=== PATIENT | male | born 1970 | race Caucasian/White ===

== ENCOUNTER 2018-11-12 10:18 | Observation (INO) | payer OTHER ==
--- NOTE | 2018-11-12 10:46 | EDPHY ---
General Time Seen by Provider: 11/12/18 10:40 Narrative: CLINICAL IMPRESSION: Chest tightness, shortness of breath, abdominal pain, nausea and vomiting ASSESSMENT/PLAN: Patient is a 48-year-old male with no significant medical history presents to the emergency department complaining of 4 days of chest tightness, shortness of breath, abdominal pain, nausea and vomiting. Patient is afebrile, uncomfortable appearing however not toxic-appearing. His abdomen was soft with tenderness to palpation in the epigastrium with mild voluntary guarding. An ECG was immediately obtained and revealed no evidence of acute ischemia, troponin negative. Chest tightness has been ongoing for 4 days, I do not suspect ACS. Perc negative, do not suspect pulmonary embolism. CBC revealed mild leukocytosis, suspect reactive. His vital signs were reviewed, no findings suggestive of sepsis or serious bacterial illness. Basic metabolic panel revealed a creatinine of 3.4 and a BUN of 48 consistent with acute kidney injury and dehydration. Patient with reported normal kidney function at baseline however has had episodes of elevated creatinine secondary to severe dehydration such as today. I suspect this is prerenal. The patient was given 2 L of IV fluid, Chem 8 was repeated and creatinine was appropriately responding and decreased to 2.5. CT abdomen and pelvis revealed incidental pulmonary nodule with recommendation for outpatient follow-up, fat stranding suggestive of Crohn's diagnosis, findings suggestive of medullary sponge kidney ; no other acute intra-abdominal processes identified. The patient was given Dilaudid, Zofran, Bentyl, Reglan and Ativan with mild improvement of his symptoms. The patient will be admitted to the hospitalist service for further evaluation and management, I spoke directly with Geetha Jones NP- he will be admitted to Dr. Jj. It is unclear the exact etiology of this patient's symptoms however query gastroparesis, irritable bowel versus gastritis. On repeat exam the patient was much more comfortable appearing, his abdomen remained soft without evidence of a surgical abdomen. DIFFERENTIAL DX: Chest pain including but not limited to myocardial ischemia, pulmonary embolus, chest wall pain, pleural inflammation and pulmonary infectious causes. Shortness of breath including but not limited to pulmonary infectious process, COPD, asthma, pulmonary embolus and congestive heart failure. Abdominal pain including but not limited to appendicitis, cholecystitis, gastritis and urinary tract infection. ED COURSE: 1050: Case discussed with Dr. Abernathy 1130: Creatinine of 3.4. 1205: Calcification medullary pyramids R>L. Nonspecific finding suggestive of Crohn's however no active colitis. Pulmonary nodule which will need to be followed up with repeat CT. No other acute intra-abdominal findings. CHIEF COMPLAINT: Chest pain, shortness of breath, abdominal pain, nausea, vomiting, weight loss HPI: Patient is a 48-year-old male with no significant medical history who presents to the emergency department complaining of chest tightness, shortness of breath , abdominal pain, nausea and vomiting that has been ongoing for the last 4 days. Patient reports on Sunday he went out to eat, when he returned home he started feeling hot and cold flashes and had sudden onset of vomiting. Patient had multiple episodes of vomiting that evening. On Sunday he kept his diet to straight fluids, no further vomiting at that time. On Sunday he tried to eat solids and had repeated emesis from 3 until 9:00 p.m.. Patient reports persistently feeling poorly with constant chest tightness that has been present since Sunday with associated intermittent shortness of breath. He denies any radiation of his chest tightness, states that it is in the center of his chest. He has had no associated diaphoresis. No history of coronary artery disease or early family history of coronary artery disease. He describes his abdominal discomfort as cramping in nature that waxes and wanes. It is mostly located in his upper abdomen and epigastrium. Patient does report similar episodes in the past with extensive workup in [place] including normal upper endoscopy and colonoscopy; possible Crohn's but never confirmed. Patient with presumed irritable bowel syndrome, currently not on any medications. Patient reports it has been several years since he has had a similar episode. He denies any fevers , hematemesis or urinary symptoms to include dysuria, hematuria or frequency. Patient has not had a bowel movement since Sunday, reports a 22 lb weight loss since this time as well. PMH: Intermittent abdominal pain Family History: Noncontributory Social History: Occasional alcohol, denies smoking REVIEW OF SYSTEMS: All other systems negative Constitutional: Decreased appetite. No fever, no chills. Eyes: No discharge, vision change ENT: No sore throat, congestion, ear pain. Cardiovascular: Chest pain, no palpitations. Respiratory: Shortness of breath, no cough. Gastrointestinal: Abdominal pain, vomiting, constipation. Genitourinary: No hematuria, dysuria, flank pain, pelvic pain. Musculoskeletal: No back pain, joint swelling, joint pain, myalgias. Skin: No rashes, color change. Neurological: No headache, dizziness, weakness. PHYSICAL EXAM: General Appearance: Patient is well-developed, he is uncomfortable appearing however not toxic-appearing. HENT: Normocephalic, atraumatic. Bilateral external ears are normal. Bilateral tympanic membranes are normal with pearly hernandez reflex. Nares are clear, mucosa is pink. Oropharynx is clear, mucosa is mildly dry, uvula is midline. There is no tonsillar enlargement or exudate. The dentition is normal. Eyes: PERRLA, no acute vision change, nystagmus, swelling, discharge, pain or photosensitivity. Conjunctiva pink, no pallor or injection. Neck: Supple, nontender, no lymphadenopathy, no midline pain, FROM, no meningismus. Respiratory: There are no retractions, lungs are clear to auscultation. Cardiac: Regular rate and rhythm, no murmurs or gallops. Gastrointestinal: Patient's abdomen is soft and nondistended. He has generalized tenderness to palpation however he is most tender in the upper abdomen between the epigastrium and umbilicus with mild voluntary guarding. Negative Gan sign, negative McBurney's point tenderness and negative Rovsing's. Bowel sounds normal, no masses/hernia, no rigidity. Neurological: Alert and oriented x 3, CN 2-12 grossly intact, normal gait no ataxia, DTR's intact, normal sensation and strength. Skin: Warm, dry, no rashes, no nodules on palpation. Musculoskeletal: Extremities are symmetrical, full range of motion, no tenderness, deformity, swelling, or erythema. Psychiatric: Patient is oriented X 3, there is no agitation. PERC negative Heart score low MEDICAL DECISION MAKING: Patient was seen independently. Secondary supervising physician at time of evaluation was Dr. Abernathy, case and plan of care discussed with him. Diagnosis: Acute kidney injury, Chest tightness, shortness of breath, nausea, vomiting, abdominal pain. New, requires workup Summary: See Assessment and Plan for summary of ED visit Clinical lab tests: ordered / reviewed. Independent visualization of images, tracing, or specimens: Yes. Decision to obtain medical records or history from someone other than the patient: No Review / Summarize previous medical records: None available Discussed patient with another provider: Yes, Dr. Abernathy Patient Progress: Stable, admit. - Diagnostics Imaging Results: Imaging Impressions Abdomen/Pelvis CT 11/12/18 10:47 IMPRESSION: 1. No evidence of abdominopelvic inflammatory mass or ascites. 2. Mural fat density in the bowel wall of the ileum which can be seen with patient's reported Crohn disease. 3. Subtle renal findings suggestive of medullary sponge kidney. 4. Incomplete visualization of 1.0 cm pleural-based pulmonary nodule in the left lower lobe. This may be secondary to rounded atelectasis, however pulmonary mass cannot be excluded. Recommend outpatient diagnostic CT scan of the chest for further evaluation. Shelia Her was notified of these findings by telephone at 12:05 PM on 11/12/2018 Chest X-Ray 11/12/18 10:49 Impression: 1. Mild bronchitis/airways disease. 2. No definite focal pneumonia. - History Smoking Status: Never smoked - Objective Vital Signs: Initial Vital Signs Temperature (C) 36.6 C 11/12/18 10:26 Heart Rate 96 11/12/18 10:26 Respiratory Rate 16 11/12/18 10:26 Blood Pressure 108/93 H 11/12/18 10:26 O2 Sat (%) 97 11/12/18 10:26 O2 Delivery Mode Room Air Allergies/Adverse Reactions: No Known Allergies Allergy (Verified 11/12/18 13:11) Home Medications: Medication Instructions Recorded Calcium Carbonate [Oyster Shell 500 mg PO DAILY 11/12/18 Calcium 500 mg (*)] Herbals/Supplements -Info Only 1 ea PO DAILY 11/12/18 Laboratory Results: Laboratory Results 11/12/18 10:51 11/12/18 10:51 11/12/18 11/12/18 11/12/18 12:37 11:13 11:10 WBC RBC Hgb POC Hgb 15.3 gm/dL gm/dL 19.4 gm/dL H gm/dL (13.7-17.5) (13.7-17.5) Hct POC Hct 45 % % 57 % H % (40-51) (40-51) MCV MCH MCHC RDW Plt Count MPV Neut % (Auto) Lymph % (Auto) [place] % (Auto) Eos % (Auto) Baso % (Auto) Nucleat RBC Rel Count Absolute Neuts (auto) Absolute Lymphs (auto) Absolute Monos (auto) Absolute Eos (auto) Absolute Basos (auto) Absolute Nucleated RBC Immature Gran % Immature Gran # POC Sodium 147 mEq/L H mEq/L 144 mEq/L mEq/L (135-145) (135-145) Sodium POC Potassium 3.2 mEq/L L mEq/L 3.3 mEq/L mEq/L (3.3-5.0) (3.3-5.0) Potassium POC Chloride 109 mEq/L mEq/L 104 mEq/L mEq/L (97-110) (97-110) Chloride Carbon Dioxide Anion Gap POC BUN 41 mg/dL H mg/dL 48 mg/dL H mg/dL (7-23) (7-23) BUN Creatinine POC Creatinine 2.5 mg/dL H mg/dL 3.4 mg/dL H mg/dL (0.7-1.3) (0.7-1.3) Estimated GFR Glucose POC Glucose 105 mg/dL H mg/dL 153 mg/dL H mg/dL (70-100) (70-100) Calcium Total Bilirubin Conjugated Bilirubin Unconjugated Bilirubin AST ALT Alkaline Phosphatase POC Troponin I 0.01 ng/mL ng/mL (0.00-0.08) Total Protein Albumin Lipase 11/12/18 11/12/18 10:51 10:51 WBC 11.43 10^3/uL H 10^3/uL (3.80-9.50) RBC 6.35 10^6/uL 10^6/uL (4.40-6.38) Hgb 19.1 g/dL H g/dL (13.7-17.5) POC Hgb Hct 55.8 % H % (40.0-51.0) POC Hct MCV 87.9 fL fL (81.5-99.8) MCH 30.1 pg pg (27.9-34.1) MCHC 34.2 g/dL g/dL (32.4-36.7) RDW 12.8 % % (11.5-15.2) Plt Count 334 10^3/uL 10^3/uL (150-400) MPV 10.2 fL fL (8.7-11.7) Neut % (Auto) 75.8 % H % (39.3-74.2) Lymph % (Auto) 12.9 % L % (15.0-45.0) [place] % (Auto) 10.2 % % (4.5-13.0) Eos % (Auto) 0.1 % L % (0.6-7.6) Baso % (Auto) 0.4 % % (0.3-1.7) Nucleat RBC Rel Count 0.0 % % (0.0-0.2) Absolute Neuts (auto) 8.65 10^3/uL H 10^3/uL (1.70-6.50) Absolute Lymphs (auto) 1.48 10^3/uL 10^3/uL (1.00-3.00) Absolute Monos (auto) 1.17 10^3/uL H 10^3/uL (0.30-0.80) Absolute Eos (auto) 0.01 10^3/uL L 10^3/uL (0.03-0.40) Absolute Basos (auto) 0.05 10^3/uL 10^3/uL (0.02-0.10) Absolute Nucleated RBC 0.00 10^3/uL 10^3/uL (0-0.01) Immature Gran % 0.6 % % (0.0-1.1) Immature Gran # 0.07 10^3/uL 10^3/uL (0.00-0.10) POC Sodium Sodium 142 mEq/L mEq/L (135-145) POC Potassium Potassium 3.9 mEq/L mEq/L (3.5-5.2) POC Chloride Chloride 104 mEq/L mEq/L (97-110) Carbon Dioxide 22 mEq/l mEq/l (22-31) Anion Gap 16 mEq/L H mEq/L (6-14) POC BUN BUN 51 mg/dL H mg/dL (7-23) Creatinine 3.0 mg/dL H mg/dL (0.7-1.3) POC Creatinine Estimated GFR 23 Glucose 155 mg/dL H mg/dL (70-100) POC Glucose Calcium 10.5 mg/dL H mg/dL (8.5-10.4) Total Bilirubin 1.8 mg/dL H mg/dL (0.1-1.4) Conjugated Bilirubin 0.3 mg/dL mg/dL (0.0-0.5) Unconjugated Bilirubin 1.5 mg/dL H mg/dL (0.0-1.1) AST 33 IU/L IU/L (17-59) ALT 20 IU/L L IU/L (21-72) Alkaline Phosphatase 97 IU/L IU/L (38-126) POC Troponin I Total Protein 8.5 g/dL H g/dL (6.3-8.2) Albumin 5.1 g/dL H g/dL (3.5-5.0) Lipase 84 IU/L IU/L (23-300) Medications Given: Sodium Chloride (Ns) 1,000 mls @ 150 mls/hr IV CONT HAILE Stop: 05/11/19 13:59 Last Admin: 11/12/18 15:49 Dose: 1,000 mls Ondansetron HCl (Zofran) 4 mg IVP Q4 HAILE Stop: 05/11/19 13:59 Last Admin: 11/12/18 15:49 Dose: 4 mg Discontinued Medications Dicyclomine HCl (Bentyl) 20 mg PO EDNOW ONE Stop: 11/12/18 12:41 Last Admin: 11/12/18 12:45 Dose: 20 mg Diphenhydramine HCl (Benadryl Injection) 25 mg IVP EDNOW ONE Stop: 11/12/18 13:18 Last Admin: 11/12/18 13:21 Dose: 25 mg Hydromorphone HCl (Dilaudid) 0.5 mg IVP EDNOW ONE Stop: 11/12/18 12:04 Last Admin: 11/12/18 12:47 Dose: 0.5 mg Sodium Chloride (Ns) 1,000 mls @ 0 mls/hr IV ONCE ONE PRN Reason: Wide Open Stop: 11/12/18 10:49 Last Admin: 11/12/18 11:15 Dose: 1,000 mls Sodium Chloride (Ns) 1,000 mls @ 0 mls/hr IV ONCE ONE PRN Reason: Wide Open Stop: 11/12/18 11:52 Last Admin: 11/12/18 11:56 Dose: 1,000 mls Sodium Chloride (Ns) 1,000 mls @ 3,000 mls/hr IV ONCE ONE Stop: 11/12/18 17:15 Last Admin: 11/12/18 17:00 Dose: 1,000 mls Lorazepam (Ativan Injection) 1 mg IVP ONCE ONE Stop: 11/12/18 13:17 Last Admin: 11/12/18 13:27 Dose: 1 mg Metoclopramide HCl (Reglan Injection) 10 mg IVP EDNOW ONE Stop: 11/12/18 13:18 Last Admin: 11/12/18 13:21 Dose: 10 mg Ondansetron HCl (Zofran) 4 mg IVP Q4 PRN PRN Reason: Nausea/Vomiting, Can't Take PO Stop: 05/11/19 12:02 Last Admin: 11/12/18 12:44 Dose: 4 mg Point of Care Test Results: Chemistry 11/12/18 11/12/18 11/12/18 12:37 11:13 11:10 POC Sodium 147 mEq/L H mEq/L 144 mEq/L mEq/L (135-145) (135-145) POC Potassium 3.2 mEq/L L mEq/L 3.3 mEq/L mEq/L (3.3-5.0) (3.3-5.0) POC Chloride 109 mEq/L mEq/L 104 mEq/L mEq/L (97-110) (97-110) POC BUN 41 mg/dL H mg/dL 48 mg/dL H mg/dL (7-23) (7-23) POC Creatinine 2.5 mg/dL H mg/dL 3.4 mg/dL H mg/dL (0.7-1.3) (0.7-1.3) POC Glucose 105 mg/dL H mg/dL 153 mg/dL H mg/dL (70-100) (70-100) POC Troponin I 0.01 ng/mL ng/mL (0.00-0.08) ISTAT H&H 11/12/18 11/12/18 12:37 11:13 POC Hgb 15.3 gm/dL gm/dL 19.4 gm/dL H gm/dL (13.7-17.5) (13.7-17.5) POC Hct 45 % % 57 % H % (40-51) (40-51) Departure - Departure Disposition: [facility] Inpatient Acute Clinical Impression: RAHUL (acute kidney injury), Chest tightness or pressure Abdominal pain Qualifiers: Abdominal location: generalized Qualified Code(s): R10.84 - Generalized abdominal pain Nausea & vomiting Qualifiers: Vomiting type: unspecified Vomiting Intractability: non-intractable Qualified Code(s): R11.2 - Nausea with vomiting, unspecified
[2018-11-12] MEDS ORDERED: NS 1,000 ML IV ONE ×4 (10:48→16:57)
--- NOTE | 2018-11-12 12:00 | CPEKG ---
Test Reason : OPEN Blood Pressure : / mmHG Vent. Rate : 073 BPM Atrial Rate : 073 BPM P-R Int : 160 ms QRS Dur : 096 ms QT Int : 386 ms P-R-T Axes : 068 077 029 degrees QTc Int : 426 ms Sinus rhythm Confirmed by Daniel Abernathy ([id number]) on 11/12/2018 12:00:02 PM Referred By: Daniel Abernathy Confirmed By:Daniel Abernathy
[2018-11-12] MEDS ORDERED: ONDANSETRON 4 MG/2 ML VIAL IVP PRN ×2 (12:03→16:38)
[2018-11-12] MEDS ORDERED: HYDROmorphONE/DILAUDID 2 MG/ML INJ IVP ONE (12:03)
[2018-11-12 12:29] LABS: PLATELET COUNT 334 10^3/uL (150-400)
[2018-11-12] MEDS ORDERED: DICYCLOMINE 10 MG CAP PO ONE (12:40)
[2018-11-12] MEDS ORDERED: LORazepam 2 MG/ML INJ IVP ONE (13:16)
[2018-11-12] MEDS ORDERED: METOCLOPRAMIDE 10 MG/2 ML VIAL IVP ONE (13:17)
[2018-11-12] MEDS ORDERED: LORazepam 2 MG/ML INJ ONE (13:26)
[2018-11-12] MEDS ORDERED: ZOLPIDEM TARTRATE 5 MG TAB PO PRN (13:46)
[2018-11-12] MEDS ORDERED: ACETAMINOPHEN 325 MG TAB PO PRN (13:46)
[2018-11-12] MEDS ORDERED: NS 1,000 ML IV SCH (14:00)
--- NOTE | 2018-11-12 15:31 | PDGENHP ---
History and Physical History and Physical: CC:vomiting dehydration HISTORY: 4 days of diffuse abdominal pain and vomiting, aggravated by any food or fluid, no bleeding, no fevers (measured by ). He has this cyclic syndrome > 20 years, with prior w/u elsewhere (labs, imaging, endoscopy) unrevealing. Has been told Cyclic vomiting. He has used marijuana daily since late teens, he downplays amount, says a lot. Has zofran and phenergan at home finds them not very helpful. Does get relief from nausea with very hot shower. Numerous hospitalizations for same illness. Many episodes managed at home by self. Otherwise healthy. No prescribed meds. No alcohol, no street drugs. No family hx gi illness. 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 I have reviewed the list and ordered appropriate medicines. PHYSICAL EXAMINATION: Vital Signs:all normal with no fever Rubber Engraver: Examination: General: alert, oriented, good mentation, uncomfortable, can't sit still Skin: warm, dry, good color, no rash, poor turgor after 2 L NS in ER HEENT: normal Neck: no mass or jvd Resps: relaxed Lungs: clear breath sounds Heart: regular, no murmur Abdomen: soft, nondistended, nontender, +BS, no mass Upper Extremities: normal Lower Extremities: no edema, warm Joints all normal No Bleeding or bruising Neurologic: normal speech/language, normal technical artist, no focal weakness IV site: looks normal LABORATORY DATA: Initial anion gap 16, BUN 51, creatinine 3.0 Calcium 10.8 Hemoglobin 19 Mild white blood count elevation Multiple numbers are improving after initial hydration in the ER RADIOLOGY STUDIES: I reviewed CT scan of the abdomen images as well as radiologist's report. Nothing that explains his symptoms. This is a noncontrast CT scan. I refer reader to the radiologist report. There is a nonCa'd lung nodule as described. I do NOT feel there is any renal abnormality, and there is no sign of any active inflammatory bowel disease. 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; acute episode now, syndrome ongoing for >20 years * dehydration due to above * acute kidney injury due to above * prior hx of episodes of acute kidney injury, uncertain baseline renal fxn at present as patient has never had any follow up renal fxn checks between episodes * Hyperglycemia, uncertain if this is due to stress response from his acute illness as above her if he might have some endocrine issue * 1 cm lung nodule on CT, this should have further assessment refer him to primary care for continued evaluation upon discharge * Question of subtle findings in kidneys on CT scan as discussed above and in radiologist report. Given what I think is the very low likelihood that he actually has medullary sponge kidney, with the fact that he has had now a few episodes of acute renal failure of significance, giving him a contrasted CT seems unhelpful and possibly harmful. I reviewed this issue with Dr Mclaughlin who agrees * Question of mural wall fat which might be consistent with Crohn's in the distal ileum. He has had previous colonoscopy and assessment for Crohn's that did not disclose Crohn's and I do not think his current episode is suggestive of Crohn's. Would not pursue this any further unless he develops a clinical syndrome consistent with Crohn's PLANS: * IV hydration with more boluses and infusion * scheduled antiemetics * His symptoms generally take several days to improve significantly, will need > 48 hrs IV hydration/meds, inpatient status * follow renal fxn closely * I had a very long discussion with the patient and re strong recommendation to stop using marijuana products altogether indefinitely; gave them reading material on Cannabinod Hyperemesis Syndrome * Recommend his creatinine be followed as outpt to determine true baseline creat and may be good idea to see software integration developer over time. * check Hg A1c * Outpt follow up of lung nodule * No further evaluation for subtle kidney findings or mural fat in ileum on CT I have reviewed the patient's case in detail with Dr. Aditya Mclaughlin
[2018-11-12] MEDS: ONDANSETRON 4 MG/2 ML VIAL IVP SCH ×3 (15:49→21:30)
[2018-11-12] MEDS ORDERED: PROMETHAZINE HCL 25 MG/ML INJ IVP PRN (16:57)
[2018-11-12] MEDS ORDERED: MELATONIN 3 MG TAB PO SCH (21:00)
[2018-11-12] MEDS ORDERED: SIMETHICONE 80 MG TAB CHEW PO ONE (21:30)
[2018-11-13] MEDS ORDERED: CALCIUM CARBONATE 500 MG CHEWABLE TAB PO PRN (00:46)
[2018-11-13] MEDS: SIMETHICONE 80 MG TAB CHEW PO PRN ×3 (01:08→12:18)
[2018-11-13 05:48] LABS: PLATELET COUNT 260 10^3/uL (150-400)
[2018-11-13] MEDS: ONDANSETRON 4 MG/2 ML VIAL IVP SCH ×4 (05:52→13:08)
[2018-11-13] MEDS ORDERED: HALOPERIDOL LACT 5 MG/ML INJ IVP ONE (06:07)
--- NOTE | 2018-11-13 10:07 | PDMN ---
Medical Necessity Medical necessity: Change to inpt as of 11/12/18 @ 21:29, meets criteria per MD order and MCG M-[id number], Vomiting. 48 y/o w/intractable cyclic vomiting syndrome admitted w/acute episode, 4 days abd pain/vomiting, RAHUL due to above w/BUN/ creat 51/3.0 and hyperglycemia. Hx daily marijuana use, hx of prior episodes of RAHUL. Anticipate>48 hrs IV hydration/meds, requiring IV antiemetics roughly every 3-4 hrs on day of admit fr persistent N/V.
--- NOTE | 2018-11-13 10:33 | ASMTCMCOM ---
CM Note CM Note Notes: Chart reviewed for discharge planning purposes. 48 year old male with cyclic vomiting. Chronic issue in this patient. He has antiemetics at home. Daily marijuana use. Symptoms relieved by hot showers. Patient has been counseled regarding the association between substance and vomiting. No current needs identified CM available should other needs arise. Plan: Likely home when medically cleared for discharge. Date Signed: 11/13/2018 10:29 AM Electronically Signed By:Hillary Morales RN
[2018-11-13 11:55] VITALS: BP 135/89
--- NOTE | 2018-11-13 13:08 | ASMTCMCOM ---
CM Note CM Note Notes: CM met with family to provide resources regarding cessation of marijuana. Patient unable to make eye contact and is restless c/o gas. He states he hasn't needed a PCP for care before. He is open about thinking his substance abuse may contribute to his cyclic vomiting. He is also concerned about his kidney function. He has two young children. at bedside and is supportive. He has not seen a gasteroenterologist in some time. Per patient his first episode of cyclic vomiting began at age 17. Food precipitates nausea. He is concerned as his episodes are increasing in not only frequency but in duration as well. CM to follow. Plan: Likely to dc when medically stable for discharge. Resources for services provided, Date Signed: 11/13/2018 01:07 PM Electronically Signed By:Hillary Morales RN
--- NOTE | 2018-11-13 23:31 | GDS ---
[f rep st] DISCHARGE SUMMARY DISCHARGE DIAGNOSES: 1. Cannabis hyperemesis. 2. Acute renal failure. 3. Possible medullary sponge kidney. 4. Pulmonary nodule. HISTORY: The patient is a 48-year-old male with a longstanding history of nausea and vomiting. He p reviously had upper and lower endoscopies, but it has been a little while. He is a heavy user of mar ijuana. He has previously been diagnosed with cyclic vomiting. He has used daily marijuana since hi s late teens. He gets relief with a very hot shower. He was educated regarding cannabis hyperemesis syndrome, which is felt to be the more likely diagnosis rather than cyclic vomiting syndrome. It wa s recommended he discontinue all marijuana use. He plans to follow up with Gastroenterology to consi kevin repeat endoscopy, although I recommended initially discontinuing marijuana to see whether or not he has improvement. He presented with a creatinine of 3.0. His baseline is unknown. With hydration, it came down to 1.[address] scan shows possible medullary sponge kidney. He has never had lab work done when he is fee ling well, so he does not know whether or not his creatinine ever returns to normal. It is recommend ed he follow up closely with Primary Care as an outpatient to better assess his renal status. DISCHARGE MEDICATIONS: Please see computerized record for full detailed list. NEW MEDICATIONS: None. ADDITIONAL DISCHARGE INSTRUCTIONS: 1. Discontinue marijuana. 2. Prilosec OTC recommended for acid reflux. 3. Outpatient GI consultation to consider repeat endoscopy. 4. Repeat creatinine as an outpatient to assess baseline renal function. 5. Outpatient followup regarding possible medullary sponge kidney. 6. Pulmonary nodule. Needs outpatient evaluation, possible CT chest. Greater than 30 minutes' time was spent arranging this discharge. Patient was seen and examined by andrés clayton on the day of discharge. /[id number]/[id number]
== END 2018-11-13 13:58 | disposition home or self-care (01) ==
LOC: F3E 14:06 → OBSVTOIN 21:29 → INTOOBSV 21:29
PROVIDERS: ADMIT Internal Medicine; ATTEND Internal Medicine
DX: G43.A1 Cyclical vomiting, in migraine, intractable (principal); R10.10 Upper abdominal pain, unspecified; F12.188 Cannabis abuse with other cannabis-induced disorder; N17.9 Acute kidney failure, unspecified; E86.0 Dehydration; R91.1 Solitary pulmonary nodule; R93.429 Abnormal radiologic findings on diagnostic imaging of unspecified kidney; R73.9 Hyperglycemia, unspecified
CPT/HCPCS: 71046; 74176; 93005; 96361; 96374; 96375; 96376; 99285; G0378; 82435-PO; 82565-PO; 82947-PO; 84132-PO; 84295-PO; 84484-ER; 84520-PO; 85014-ER; J1170; J1200; J1630; J2060; J2405; J2765